=== PATIENT | male | born 1945 | race Caucasian/White ===

== ENCOUNTER 2019-12-24 20:04 | Emergency (ER) | payer MEDICARE, OTHER ==
--- NOTE | 2019-12-24 20:16 | ER Document Report ---
ED Medical Screen (RME) - General Chief Complaint: Laceration Stated Complaint: HEAD INJURY/BLOOD THINNERS Time Seen by Provider: 12/24/19 20:05 Mode of Arrival: Wheelchair Information source: Patient, Relative Notes: HPI; 74-year-old male with past medical history significant for brain tumor presents emergency room with his after he lost his balance falling backward hitting his head on concrete and sustaining a laceration to the back of his head. Denies any loss of consciousness. Bleeding is controlled. Tetanus is up-to-date. Denies being on any blood thinners. PE: Alert and oriented x3. Slow to respond when asked questions, per that is his baseline. PERRLA, EOMI no trejo signs, no raccoon eyes. Lungs: Clear to auscultation without rales, rhonchi, wheezes. Heart: Regular rate rhythm without murmurs, rubs, gallops. Laceration noted to the back of the scalp bleeding is controlled. Tetanus is up-to-date. I have greeted and performed a rapid initial assessment of this patient. A comprehensive ED assessment and evaluation of the patient, analysis of test results and completion of the medical decision making process will be conducted by additional ED providers. I have specifically instructed the patient or family members with the patient to immediately return to any nursing staff should anything change in the patient's condition or with their chief complaint. TRAVEL OUTSIDE OF THE [place] IN LAST 30 DAYS: No
[2019-12-24 20:23] VITALS: BP 164/81
--- NOTE | 2019-12-24 21:12 | RADIOLOGY REPORT (SQ) ---
EXAM DESCRIPTION: CT HEAD WITHOUT IV CONTRAST COMPLETED DATE/TME: 12/24/2019 20:41 CLINICAL HISTORY: 74 years, Male, trauma COMPARISON: None. TECHNIQUE: Axial images without IV contrast. Sagittal coronal reconstruction. Images stored on PACS. All CT scanners at this facility use dose modulation, iterative reconstruction, and/or weight based dosing when appropriate to reduce radiation dose to as low as reasonably achievable (ALARA). FINDINGS: Jloe-[id number] ventriculomegaly. Cortical sulci are not prominent. Post craniotomy changes in the high left frontal and parietal bones. There is a peripheral hypodensity adjacent to the anterior portion of the craniotomy which measures approximately 3 cm in diameter. There are additional punctate calcifications in the same region not inside the hypodensity. No obvious acute intra-axial or extra-axial abnormalities related to trauma. Tiny soft tissue swelling possibly scalp hematoma in the midline posterior skull. Paranasal sinuses, mastoid air cells and bony calvarium are demonstrated without acute findings. IMPRESSION: 1. No obvious acute intracranial findings related to trauma. 2. Ventricles larger compared to cortical sulci. Rule out mild chronic hydrocephalus. 3. Postsurgical changes including craniotomy in the left vertex, moderate size area of hypodensity and additional clustered calcifications in the high left frontal parietal lobe.. Suggest correlation with surgical history.
--- NOTE | 2019-12-24 21:18 | RADIOLOGY REPORT (SQ) ---
EXAM DESCRIPTION: CT CERVICAL SPINE WITHOUT IV CONTRAST COMPLETED DATE/TME: 12/24/2019 20:41 CLINICAL HISTORY: 74 years, Male, trauma COMPARISON: None. TECHNIQUE: Axial images without IV contrast. Sagittal coronal reconstruction. Images stored on PACS. All CT scanners at this facility use dose modulation, iterative reconstruction, and/or weight based dosing when appropriate to reduce radiation dose to as low as reasonably achievable (ALARA). FINDINGS: Minimal anterior subluxation C4-5 probably degenerative. No obvious acute fracture dislocation. Multiple levels of degenerative changes. Ezyt-el-kzlmdzzf central stenosis at C4-5 and C6-7 and moderate at C5-C6. Large anterior osteophytes. Foraminal stenosis more obvious at C3-4 on the left C4-5 on the left C5-C6 and C6-7 bilaterally. IMPRESSION: 1. No obvious acute fracture dislocation. 2. Multilevel degenerative changes with central foraminal stenosis discussed above.
--- OUTSIDE RECORDS SUMMARY | 2019-12-26 17:51 | XMS REPORT ---
:1945 Author Organization [facility] Address [address] [place] [address] Care Team Providers Name Role Phone Lacy Bazzi Primary Care Physician Unavailable MD Marguerite Saba Attending Clinician Unavailable MD Marguerite Saba Attending Clinician Unavailable JAVI MONTE Attending Clinician Unavailable Lacy Bazzi MD Attending Clinician Unavailable Nubia DOWNS Attending Clinician Unavailable Ken Dowling Attending Clinician Unavailable Ken Dowling Attending Clinician Unavailable MD Reilly Burrell Attending Clinician Unavailable MD Reilly Burrell Attending Clinician Unavailable MD Demetrice Delgado Attending Clinician Unavailable MD Demetrice Delgado Attending Clinician Unavailable IGOR BEAULIEU Attending Clinician Unavailable JAVI MONTE Attending Clinician Unavailable SELVIN CEDENO Attending Clinician Unavailable Lizett Attending Clinician Unavailable MD Marcellus Lo Admitting Clinician Unavailable MD Reilly Burrell Admitting Clinician Unavailable Allergies, Adverse Reactions, Alerts This patient has no known allergies or adverse reactions. Medications Ordered Filled Start Stop Current Ordering Indication Dosage Frequency Signature Comments Components Medication Medication Date Date Medication? Clinician (SIG) Name Name Lisinopril 0 Yes Miguelito House Lisinopril 2.5 MG Oral 7-24 Rose Mary DOWNS 2.5 MG Tablet 10:31: Oral 07 Tablet TAKE 1 TABLET BY MOUTH ONCE DAILY FOR KIDNEY PROTECTION Quantity: 90 Refills: 1 Miguelito Bazzi MD Start : 0Active Rollator 2019-0 Yes Miguelito House Rollator Ultra-Light 7-13 Rose Mary DOWNS Ultra-Lig h 00:00: t ROLLING 00 WALKER- ABNORAL GAIT Quantity: 1 Refills: 0 Miguelito Bazzi MD Start : 0Active Atorvastati 2019-0 No Miguelito House Atorvastat n Calcium 6-22 Rose Mary DOWNS in Calcium 20 MG Oral 09:52: 20 MG Oral Tablet 45 Tablet take 1 tablet by mouth once daily at bedtime Quantity: 30 Refills: 6 Miguelito Bazzi MD Start : 0Active metFORMIN No Miguelito B metFORMIN HCl - 500 -19 Rose Mary DOWNS HCl - 500 MG Oral 13:24: MG Oral Tablet 03 Tablet TAKE 1 TABLET BY MOUTH TWICE DAILY WITH MEALS Quantity: 180 Refills: 3 Miguelito Bazzi MD Start : 0Active levETIRAcet No 1500mg 1,500 mg = am 750 mg 3-05 2 tab(s), oral 14:36: PO, Daily, tablet, 00 # 60 extended tab(s), 0 release Refill(s) levETIRAcet 2020- No [id number] 1500mg Q.5D Take 2 am (KEPPRA 2-20 -19 tablets XR) 750 mg 00:00: 23:59 (1,500 mg ER tablet 00 :00 total) by mouth 2 (two) times daily ondansetron No See 8 mg oral 04-03 Instructio tablet* 13:04: ns, 1 00 tab(s) PO 30 minutes before Temodar dose, # 5 tab(s), 0 Refill(s), Pharmacy: [facility], 193, cm, 04/03/19 9:08:00 EST, Height, 130.7, kg, 04/03/19 9:08:00 EST, Weight KEPPRA XR 2019- No [id number] 1500mg Q12H Take 3 500 mg XR 2-05 -20 tablets tablet 00:00: 00:00 (1,500 mg 00 :00 total) by mouth every 12 (twelve) hours Lisinopril No Miguelito B Lisinopril 2.5 MG Oral 1-14 Rose Mary DOWNS 2.5 MG Tablet 13:24: Oral 49 Tablet TAKE 1 TABLET BY MOUTH ONCE DAILY FOR KIDNEY PROTECTION Quantity: 90 Refills: 1 Miguelito Bazzi MD Start : 0Active KEPPRA XR 2020- No [id number] TAKE 3 500 mg XR 1-03 02-05 TABLETS BY tablet 00:00: 00:00 MOUTH 00 :00 TWICE DAILY Tamsulosin 2018-02 No Miguelito B Tamsulosin HCl - 0.4 2-12 Rose Mary DOWNS HCl - 0.4 MG Oral 08:15: MG Oral Capsule 31 Capsule take 1 capsule by mouth once daily at bedtime Quantity: 90 Refills: 3 Miguelito Bazzi MD Start : 9Active Temodar 100 2018-02 Yes Blair Temodar MG Oral 2-04 Ashanti 100 MG Capsule 00:00: M.D. Oral 00 Capsule TAKE 2 CAPSULE Daily x 42 days (held as of 02/07/19) Refills: 0 Ashanti Rivas Blair Start : 16-Jan-2019 Active MVI 2018-02 Yes 11 1 tab, PO, 1-20 Daily, 0 13:54: Refill(s) 00 Flomax 0.4 2018-02 Yes .4mg 0.4 mg = 1 mg oral 1-20 cap(s), capsule 13:54: PO, Daily, 00 0 Refill(s) metFORMIN 2018-02 Yes 500mg 500 mg = 1 500 mg oral 1-20 tab(s), tablet 13:53: PO, BID, 0 00 Refill(s) Keppra XR 2018-02 Yes 1500mg 1,500 mg, 1-20 PO, BID, 0 13:52: Refill(s) 00 Shingrix 50 Yes Miguelito House Shingrix MCG/0.5ML 05-15 Rose Mary DOWNS 50 Intramuscul 00:00: MCG/0.5ML ar 00 Intramuscu Suspension lar Reconstitut Suspension ed Reconstitu césar INJECT DOSE DIRECTED. Quantity: 1 Refills: 0 Miguelito Bazzi MD Start : 15-May-2018 Active Shingrix 50 Yes Miguelito House Shingrix MCG 05-15 Rose Mary DOWNS 50 MCG Intramuscul 00:00: Intramuscu ar 00 lar Suspension Suspension Reconstitut Reconstitu ed césar INJECT SECOND DOSE 2-6 MONTHS AFTER FIRST DOSE. Quantity: 1 Refills: 0 Miguelito Bazzi MD Start : 15-May-2018 Active Nitroglycer Yes Miguelito House Nitroglyce in 0.4 MG 11-08 Rose Mary DOWNS rin 0.4 MG Sublingual 00:00: Sublingual Tablet 00 Tablet Sublingual Sublingual NITRO - DISSOLVE ONE TABLET UNDER THE TONGUE EVERY 5 MINUTES NEEDED FOR CHEST PAIN. DO NOT EXCEED A TOTAL OF 3 DOSES IN 15 MINUTES Quantity: 25 Refills: 3 Miguelito Bazzi MD Start : 8Active SF 5000 2016-02 Yes SF 5000 Plus 1.1 % 1-10 Plus 1.1 % Dental 00:00: Dental Cream 00 Cream Quantity: 51 Refills: 0 Start : 7Active levETIRAcet 2016-02 No Luis Alfredo levETIRAce am ER 750 0-17 Nubia arevalo ER 750 MG Oral 00:00: MG Oral Tablet 00 Tablet Extended Extended Release 24 Release 24 Hour Hour TAKE 2 TABLETS PO BID. Quantity: 360 Refills: 1 Luis Alfredo Delacruz MD Start : 7Active levETIRAcet 2016-02 Yes Luis Alfredo levETIRAce am ER 750 0-17 Nubia arevalo ER 750 MG Oral 00:00: MG Oral Tablet 00 Tablet Extended Extended Release 24 Release 24 Hour Hour TAKE 2 TABLETS PO BID. Quantity: 360 Refills: 1 Luis Alfredo Delacruz MD Start : 7Active Metanx Yes 1 QD Metanx 3-90.314-2- 3-02 3-90.314-2 35 MG Oral 00:00: -35 MG Capsule 00 Oral Capsule TAKE 1 CAPSULE DAILY Refills: 0 Start : 14-Apr-2016 Active PreserVisio Yes PreserVisi n AREDS 3-02 on AREDS Oral 00:00: Oral Capsule 00 Capsule TAKE DIRECTED. Refills: 0 Start : 14-Apr-2016 Active albuterol 2015-02 No 11 = 1 CFC free 90 2-31 puff(s), mcg/inh 16:47: Inhalation inhalation 00 , QID, for aerosol wheezing, use with spacer chamber, # 18 gm, 0 Refill(s) lisinopril 2015-02 Yes 2.5mg 2.5 mg = 1 2.5 mg oral 2-31 tab(s), tablet 14:42: PO, Daily 00 Lyrica 75 2015-02 Yes 75mg 75 mg = 1 mg oral 2-31 cap(s), capsule 14:41: PO, BID 00 atorvastati 2015-02 Yes 20mg 20 mg = 1 n 20 mg 2-31 tab(s), oral tablet 14:41: PO, Daily 00 Atorvastati Yes Miguelito B Atorvastat n Calcium 6-05 Rose Mary DOWNS in Calcium 20 MG Oral 00:00: 20 MG Oral Tablet 00 Tablet take 1 tablet by mouth once daily at bedtime Quantity: 90 Refills: 3 Rose Mary DOWNS, Miguelito House Start : 18-Jul-2014 Active Pregabalin No Luis Alfredo Pregabalin 75 MG Oral 3- Nubia DOWNS 75 MG Oral Capsule 00:00: Capsule 00 TAKE ONE CAPSULE BY MOUTH TWICE DAILY Quantity: 180 Refills: 1 Luis Alfredo Delacruz MD Start : 5Active Pregabalin Yes Luis Alfredo Pregabalin 75 MG Oral 3- Nubia DOWNS 75 MG Oral Capsule 00:00: Capsule 00 TAKE ONE CAPSULE BY MOUTH TWICE DAILY Quantity: 180 Refills: 1 Luis Alfredo Delacruz MD Start : 5Active Vimpat 150 Yes 150mg 150 mg = 1 mg oral 1-30 tab(s), tablet 11:34: PO, BID 00 Vimpat 200 No LuisA lfredo 1 Q0.5D Vimpat 200 MG Oral - Nubia DOWNS MG Oral Tablet 00:00: Tablet 00 TAKE 1 TABLET TWICE DAILY Quantity: 180 Refills: 1 Luis Alfredo Delacruz MD Start : 4Active Vimpat 200 Yes Luis Alfredo 1 Q0.5D Vimpat 200 MG Oral - Nubia DOWNS MG Oral Tablet 00:00: Tablet 00 TAKE 1 TABLET TWICE DAILY Quantity: 180 Refills: 1 Luis Alfredo Delacruz MD Start : 4Active levETIRAcet 2012-02- No TAKE TWO am (KEPPRA 03-09 04-18 TABLETS BY XR) 750 mg 00:00: 00:00 MOUTH AT ER tablet 00 :00 BEDTIME EVERY DAY LORazepam 2012-02- No [id number] One tablet (ATIVAN) 02-26 by mouth MG tablet 00:00: 00:00 once daily 00 :00 as needed for anxiety. nystatin 2012-02- No [id number] 5mL Q.25D Swish and (MYCOSTATIN 02-26 swallow 5 ) 100,000 00:00: 23:59 mLs 4 unit/mL 00 :00 (four) suspension times daily. Ondansetron Yes Blair Ondansetro HCl - 8 MG 9-23 Ashanti vandana HCl - 8 Oral Tablet 00:00: M.D. MG Oral 00 Tablet Take one tablet 30 minutes before Temodar dose Quantity: 42 Refills: 0 Blair Burrell M.D. Start : 3Active lacosamide 2013- No 150mg Q.5D Take 150 (VIMPAT) 50 10-25 01-13 mg by mg tablet 00:00: 00:00 mouth 2 00 :00 (two) times daily. levETIRAcet 2012- No [id number] TAKE TW O am (KEPPRA 10-10 105 TABLETS BY XR) 750 mg 00:00: 00:00 MOUTH ONCE ER tablet 00 :00 EVERY DAY AT BEDTIME. Multi-Vitam Yes Miguelito B 1 QD Multi-Belinda in Oral 08-28 Rose Mary DOWNS min Oral Tablet 00:00: Tablet 00 TAKE 1 TABLET DAILY. Quantity: 1 Refills: 0 Miguelito Bazzi MD Start : 3Active Tamsulosin Yes Miguelito B Tamsulosin HCl - 0.4 - Rose Mary DOWNS HCl - 0.4 MG Oral 00:00: MG Oral Capsule 00 Capsule take 1 capsule by mouth once daily at bedtime Quantity: 90 Refills: 3 Miguelito Bazzi MD Start : 3Active temozolomid 2013- No [id number] Take 1 cap e (TEMODAR) 08-23-10 (100 mg) 100 MG 00:00: 00:00 nightly by capsule 00 :00 mouth days - along with 1 20mg tab for a total of 120mg daily. temozolomid 2013- No [id number] Take 1 cap e (TEMODAR) 08-23 07-10 (20 mg) 20 MG 00:00: 00:00 nightly by capsule 00 :00 mouth days - along with 1 tab of 100mg for a total of 120mg daily. ondansetron 2013- No [id number] Take 1 tab (ZOFRAN) 8 08-23 (8mg) by MG tablet 00:00: 00:00 mouth 1 00 :00 hour before daily temozolomi de. Take every 8 hours as needed for nausea. metFORMIN Yes Miguelito B metFORMIN HCl - 500 2-21 Rose Mary DOWNS HCl - 500 MG Oral 00:00: MG Oral Tablet 00 Tablet TAKE 1 TABLET BY MOUTH TWICE DAILY WITH MEALS Quantity: 180 Refills: 3 Rose Mary DOWNS, Miguelito B Start : 3Active metFORMIN Yes 500mg Take 500 (GLUCOPHAGE mg by ) 500 MG mouth 2 tablet (two) times daily with meals. multivitami No 1{tbl} QD Take 1 n tablet by (MULTIVITAM mouth once IN) tablet daily. UNABLE TO Yes Preservisi FIND on , 100mg once a day tamsulosin Yes .4mg QD Take 0.4 (FLOMAX) mg by 0.4 mg mouth capsule nightly. lisinopril Yes 2.5mg QD Take 2.5 (PRINIVIL,Z mg by ESTRIL) 2.5 mouth once MG tablet daily. atorvastati Yes 20mg QD Take 20 mg n (LIPITOR) by mouth 20 MG every tablet evening pregabalin Yes 75mg Q.5D Take 75 mg (LYRICA) 75 by mouth 2 MG capsule (two) times daily. lacosamide Yes 200mg Q.5D Take 200 (VIMPAT) mg by 200 mg mouth 2 tablet (two) times daily docusate Yes 100mg Q.5D Take 100 (COLACE) mg by 100 MG mouth 2 capsule (two) times daily as needed for Constipati on sennosides Yes 1{tbl} Q1H Take 1 (SENOKOT) tablet by 8.6 mg mouth as tablet needed multivitami Yes 1{tbl} QD Take 1 n tablet by (MULTIVITAM mouth once IN) tablet daily. amoxicillin No amoxicilli 875 n 875 mg-potassiu mg-potassi m um clavulanate clavulanat 125 mg e 125 mg tablet tablet atorvastati No atorvastat n 20 mg in 20 mg tablet tablet fluticasone No fluticason propionate e 50 propionate mcg/actuati 50 on nasal mcg/actuat spray,suspe ion nasal nsion spray,susp ension Gleostine No Gleostine 100 mg 100 mg capsule capsule levetiracet No levetirace am ER 750 arevalo ER 750 mg mg tablet,exte tablet,ext nded ended release 24 release 24 hr hr lisinopril No lisinopril 2.5 mg 2.5 mg tablet tablet Lyrica 75 No Lyrica 75 mg capsule mg capsule metformin No metformin 500 mg 500 mg tablet tablet nitroglycer No nitroglyce in 0.4 mg rin 0.4 mg sublingual sublingual tablet tablet ondansetron No ondansetro HCl 8 mg n HCl 8 mg tablet tablet prochlorper No prochlorpe azine razine maleate 10 maleate 10 mg tablet mg tablet promethazin No promethazi e 6.25 ne 6.25 mg-codeine mg-codeine 10 mg/5 mL 10 mg/5 mL syrup syrup SF 5000 No SF 5000 Plus 1.1 % Plus 1.1 % dental dental cream cream tamsulosin No tamsulosin 0.4 mg 0.4 mg capsule capsule Vimpat 200 No Vimpat 200 mg tablet mg tablet acetaminoph No 650mg Q6H Take 650 en 08-01 mg by (TYLENOL) 00:00 mouth 325 MG :00 every 6 tablet (six) hours as needed. Reported on 03/01/2016 docusate 2013- No 100mg Q1H Take 100 (COLACE) 09-25 mg by 100 MG 00:00 mouth as capsule :00 needed. sennosides- 2013- No 1{tbl} Q1H Take 1 docusate 09-25 tablet by (SENOKOT-S) 00:00 mouth as 8.6-50 mg :00 needed. tablet atorvastati 2013- No 40mg QD Take 40 mg n (LIPITOR) 07-10 by mouth 40 MG 00:00 daily. tablet :00 calcium-vit 2013- No 1{tbl} QD Take 1 crowder D 07-10 tablet by 500-125 00:00 mouth mg-unit :00 daily. tablet lisinopril 2013- No 2.5mg QD Take 2.5 (PRINIVIL,Z 03-06 mg by ESTRIL) 2.5 00:00 mouth MG tablet :00 daily. mirabegron 2013- No 1{tbl} Q1H Take 1 50 mg Tb24 03-06 tablet by 00:00 mouth as :00 needed. phenytoin 2013- No 200mg QD Take 200 (DILANTIN) 01-09 mg by 100 MG ER 00:00 mouth capsule :00 nightly. . Takes generic Problems Condition Condition Condition Status Onset Resolution Last Treatin g Comments Name Details Category Date Date Treatment Clinician Date Personal Personal [id number] Active 2019-06-19 history of history of 06-18 14:08:51 malignant malignant 00:00: melanoma of melanoma of 00 skin skin Malignant Malignant Problem Active neoplasm of Neoplasm of 06-20 brain Brain 00:00: 00 Diabetes Diabetes [id number] Active 2012-10-26 mellitus mellitus 08-22 17:02:40 00:00: 00 Hyperlipide Hyperlipide [id number] Active 2012-10-26 nick nick 08-22 17:02:42 00:00: 00 Epilepsy, Epilepsy, [id number] Active 2012-10-26 Overview: localizatio localizatio 08-22 17:03:06 Due to n-related n-related 00:00: brai n 00 tumor. 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 Disease of Respiratory Problem suspend P roblem respiratory disorder(Co ed added system nfirmed)8 automa tic (disorder) ally by system based on initiati o n of the Respirat o ry Disorder Plan of Care. Alteration Alteration Problem active Pr oblem in comfort: in comfort: added pain pain(Confir auto matic (finding) med)1 ally b y system based on initiati o n of the Alterati o n in comfort: Pain amelia n of Care. At risk of At risk for Problem active P roblem infection infection(C ad ded (finding) onfirmed)2 aut omatic ally by system based on initiati o n of the At Risk for Infectio n Plan of Care. Impaired Impaired Problem active Proble m skin skin added integrity integrity(C au tomatic (finding) onfirmed)7 all y by system based on initiati o n of the Impaired Skin Integrit y Plan of Care. At risk for Fall Problem active Prob leonel falls risk(Confir adde d (finding) med)5 automa tic ally by system based on initiati o n of the Fall Ris k Plan of Care. Decreased Decreased Problem suspend Prob leonel cardiac cardiac ed added output output(Conf auto matic (finding) irmed)3 ally b y system based on initiati o n of the Decrease d Cardiac Output Plan of Care. 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 colon colon Abnormal Abnormal Problem Active weight loss weight loss Cancer, Cancer, Problem Active colon colon Nocturia Nocturia Problem Active Testicular Testicular Problem Active swelling swelling Epididymiti Epididymiti Problem Active s s Hypogonadis Hypogonadis Problem Active m male m male Toe pain, Toe pain, Problem Active bilateral bilateral Edema Edema Problem Active Dystrophic Dystrophic Problem Active nail nail Numbness of Numbness of Problem Active toes toes Subungual Subungual Problem Active hematoma of hematoma of toenail of toenail of right foot right foot Onycholysis Onycholysis Problem Active of toenail of toenail Abscess of Abscess of Problem Active axilla, axilla, right right Axillary Axillary Problem Active mass, right mass, right Dizziness Dizziness Problem Active Male Male Problem Active erectile erectile 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 Peripheral Peripheral Problem Active neuropathy neuropathy Fever Fever Problem Active Cough Cough Problem Active Excessive Excessive Problem Active daytime daytime sleepiness sleepiness Dyspnea on Dyspnea on Problem Active exertion exertion Sleep apnea Sleep apnea Problem Active Venous Venous Problem Active insufficien insufficien cy cy Sinus Sinus Problem Active bradycardia bradycardia Lightheaded Lightheaded Problem Active ness ness Right-sided Right-sided Problem Active low back low back pain pain without without sciatica sciatica Recurrent Recurrent Problem Active falls falls Atypical Atypical Problem Active chest pain chest pain Pain in Pain in Problem Active lateral lateral right upper right upper extremity extremity Encounter Encounter Problem Active for for prostate prostate cancer cancer screening screening Adenocarcin Adenocarcin Problem Active sus[place] of [place] of transverse transverse colon colon Right elbow Right elbow Problem Active pain pain Incomplete Incomplete Problem Active emptying of emptying of bladder bladder Anemia Anemia Problem Active Nausea Nausea Problem Active Thrombocyto Thrombocyto Problem Active penia penia Fatigue Fatigue Problem Active Benign Benign Problem Active enlargement enlargement of prostate of prostate Seizure Seizure Problem Active Hyperlipopr Hyperlipopr Problem Active oteinemia oteinemia Malignant Malignant Problem Active melanoma of melanoma of skin of skin of face face Seizure Seizure Problem Active disorder disorder Poor Poor Problem Active balance balance Ambulatory Ambulatory Problem Active dysfunction dysfunction Status post Status post [id number] Resolve 2012-2012-10-26 appendectom appendectom d 7-10 00:00:00 y y 00:00: 00 Procedures Procedure Date / Time Performed Performing Clinician Geetha sharma [id number] 00:00:00 Piter Monte MRI - Brain w/ and w/o contrast 2019-08-13 00:00:00 REQUEST TO STORE OUTSIDE IMAGES 2019-07-03 14:31:06 Ismael Monteh [id number] 6420-05-19 00:00:00 Piter Monte REQUEST TO STORE OUTSIDE IMAGES 2019-05-14 12:50:48 Ismael Monte [id number] 4036-03-10 00:00:00 Piter Monte [id number] 00:00:00 Piter Monte Stereotactic biopsy of brain 2018-12-20 00:00:00 NEUROMUSCULAR REEDUCATION 2018-10-24 11:00:00 THERAPEUTIC EXERCISES 2018-10-24 11:00:00 THERAPEUTIC EXERCISES 2018-10-22 11:00:00 THERAPEUTIC ACTIVITIES 2018-10-22 11:00:00 THERAPEUTIC EXERCISES 2018-10-12 10:00:00 NEUROMUSCULAR REEDUCATION 2018-10-12 10:00:00 THERAPEUTIC EXERCISES 2018-09-27 11:00:00 NEUROMUSCULAR REEDUCATION 2018-09-27 11:00:00 THERAPEUTIC EXERCISES 2018-09-20 10:00:00 NEUROMUSCULAR REEDUCATION 2018-09-20 10:00:00 THERAPEUTIC EXERCISES 2018-09-14 11:00:00 PT Evaluation, Low Complexity 2018-09-14 11:00:00 History of Laparoscopy Partial 2014-03-19 00:00:00 Colectomy Craniotomy 2001-09-13 00:00:00 Appendectomy; Craniotomy Hemorrhoidectomy Partial resection of colon Vasectomy History of Brain Surgery History of Small Bowel Resection Results Test Description Test Time Test Comments Text Results Atomic Results Result Comments MRI head reference only 2019-11-19 02:40:08 This order has been auto-finalized. Please see additional clin ical documentation for result rep ort. UA Spec Grav,UA Color,UA Appear,UA Glucose,UA Bili,UA 2019-10-30 15:15:00 Ketones,UA Blood,UA pH,UA Protein,UA Urobilino Test Item Value Reference Range Comments UA Spec Grav (test code = UA Spec Grav) >1.050 UA Color (test code = UA Color) LT YELLOW UA Appear (test code = UA Appear) CLEAR UA Glucose (test code = UA Glucose) NEGATIVE UA Bili (test code = UA Bili) NEGATIVE UA Ketones (test code = UA Ketones) NEGATIVE UA Blood (test code = UA Blood) NEGATIVE UA pH (test code = UA pH) 5.5 5.0-9.0 UA Protein (test code = UA Protein) 10 mg/dL 0-30 UA Urobilinogen (test code = UA Urobilinogen) NEGATIVE 0. 2-1.0 UA Nitrite (test code = UA Nitrite) NEGATIVE UA Leuk Est (test code = UA Leuk Est) NEGATIVE WBC,Neutro Percent,Lymph Percent,[place] Percent,Eos Percent,Basophil Percent,Neut Absolute,Lymphs [id number] 13:54:00 Test Item Value Reference Range Comments WBC (test code = WBC) 6.1 1 4.8-10.8 Neutro Percent (test code = Neutro Percent) 61.7 % 34.6 -71.4 Lymph Percent (test code = Lymph Percent) 16.5 % 19.6-5 2.7 [place] Percent (test code = [place] Percent) 14.5 % 2.4-11.8 Eos Percent (test code = Eos Percent) 6.4 % 0-7.8 Basophil Percent (test code = Basophil Percent) 0.7 % 0-1.8 Neut Absolute (test code = Neut Absolute) 3.7 1 1.8-7. 3 Lymphs Absolute (test code = Lymphs Absolute) 1.0 1 1. 5-4.0 [place] Absolute (test code = [place] Absolute) 0.9 1 0.2-1. 0 Eos Absolute (EOSA) (test code = Eos Absolute 0.4 1 0- 0.7 (EOSA)) Baso Absolute (BASOA) (test code = Baso Absolute 0.0 1 0.0-0.2 (BASOA)) RBC (test code = RBC) 4.09 1 4.70-6.10 Hgb (test code = Hgb) 13.4 1 14.0-18.0 Hct (test code = Hct) 41.5 % 40.0-54.0 MCV (MCV) (test code = MCV (MCV)) 101.5 fL 80-94 MCH (HCH) (test code = MCH (HCH)) 32.8 pg 27-34 MCHC (MCHC) (test code = MCHC (MCHC)) 32.3 % 31.5-36.0 RDW (RDW) (test code = RDW (RDW)) 14.8 % 11.5-14.5 Platelet (test code = Platelet) 127 1 130-400 MPV (test code = MPV) 9.7 fL 7.4-10.4 Glucose Lvl,BUN,Creatinine,Bili Total,Alk Phos,AST,ALT,Total Protein,Albumin Lvl,Globulin,Albumin/[id number] 13:54:00 Test Item Value Reference Range Comments Glucose Lvl (test code = Glucose Lvl) 95 mg/dL 74-106 BUN (test code = BUN) 16 mg/dL 9-23 Creatinine (test code = Creatinine) 0.97 mg/dL 0.70-1.30 Bili Total (test code = Bili Total) 0.4 mg/dL 0.2-1.2 Alk Phos (test code = Alk Phos) 62 1 46-116 AST (test code = AST) 24 1 15-34 ALT (test code = ALT) 23 1 10-49 Total Protein (test code = Total Protein) 6.7 1 5.7-8. 2 Albumin Lvl (test code = Albumin Lvl) 3.8 1 3.4-5.0 Globulin (test code = Globulin) 2.9 1 1.5-4.5 Albumin/Globulin Ratio (test code = 1.3 1.1-1.8 Albumin/Globulin Ratio) Calcium Lvl (test code = Calcium Lvl) 9.5 mg/dL 8.7-10.4 Sodium Lvl (test code = Sodium Lvl) 141 mmol/L 136-145 Potassium Lvl (test code = Potassium Lvl) 4.1 mmol/L 3.4-5. 1 Chloride (test code = Chloride) 107 mmol/L 98-107 CO2 (test code = CO2) 27.0 mmol/L 20-31 Anion Gap (test code = Anion Gap) 7 4-18 Calc Osmol (test code = Calc Osmol) 282 1 BUN/CR Ratio (test code = BUN/CR Ratio) 16 GFR Non (test code = GFR Non >60.00 ) GFR (test code = GFR >60.00 Chinese) [id number] 13:54:00 Test Item Value Reference Range Comments PTT (test code = PTT) 23.4 s 22.5-28.6 PT,[id number] 13:54:00 Test Item Value Reference Range Comments PT (test code = PT) 9.8 s 9.7-11.3 INR (test code = INR) 0.9 0.9-1.1 [id number] 13:54:00 Test Item Value Reference Range Comments Troponin-I (test code = Troponin-I) <0.01 0.00-0.06 Whole Blood [id number] 13:49:00 Test Item Value Reference Range Comments Whole Blood Glucose (test code = Whole Blood 94 mg/dL 74- 106 Glucose) Blood [id number] 11:51:00 Test Item Value Reference Range Comments Blood Sugar (test code = Blood Sugar) 166 mg/dL 70-110 patient is not [id number] 11:51:00 Test Item Value Reference Range Comments Urine Color (test code = Urine Color) LT. YELLOW Yellow Urine Clarity (test code = Urine Clarity) CLEAR Clear Urine Glucose (test code = Urine Glucose) NEGATIVE Negati ve Urine Ketones (test code = Urine Ketones) NEGATIVE Negati ve Urine Bilirubin (test code = Urine Bilirubin) NEGATIVE Ne gative Urine Specific [place] (test code = Urine 1.010 1.010- 1.030 Specific [place]) Urine Blood (test code = Urine Blood) NEGATIVE Negative Urine pH (test code = Urine pH) 6.0 5.0-8.0 Urine Protein (test code = Urine Protein) NEGATIVE Negati ve Urine Urobilinogen (test code = Urine 0.2 Eu/dl 0.2 Urobilinogen) Urine Nitrites (test code = Urine Nitrites) NEGATIVE Nega tive Urine Leukocytes (test code = Urine Leukocytes) NEGATIVE Negative Lipid [id number] 11:51:00 Test Item Value Reference Range Comments Chol/HDL Ratio (test code = 2089-1) 4.6 {ratio} 0.0-6.0 High Density Lipoprotein Cholesterol (test code 42 mg/dL 40-110 = High Density Lipoprotein Cholesterol) Low Density Lipoprotein, calculated (test code = 106 mg/dL 1-130 Low Density Lipoprotein, calculated) Thyroid Stimulating [id number] 11:51:00 Test Item Value Reference Range Comments Thyroid Stimulating Hormone (test code = 2.69 {mIU/mL} 0.46-4. 68 Thyroid Stimulating Hormone) [id number] 11:51:00 Test Item Value Reference Range Comments PSA, total (test code = 0.934 ng/mL 0.000-4.000 PSA perf ormed on Vitros 5600 by PSA, total) Immunometric met hod. Microalbumin [id number] 11:51:00 Test Item Value Reference Range Comments Microalbumin (test code = 1755-8) <0.6 <1.6 Less than linearity Hemoglobin [id number] 11:51:00 Test Item Value Reference Range Comments Hemoglobin A1C; Above High Threshold (test code = 6.8 % 4.3-6.2 4548-4) REQUEST TO STORE OUTSIDE [id number] 14:31:34Please refer to the appropriate PACS to view images.MRI head reference [id number] 14:29:52This order has been auto-finalized. Please see additional clinical documentation for result report.MRI head reference [id number] 14:29:52This order has been auto-finalized. Please see additional clinical documentation for result report.REQUEST TO STORE OUTSIDE [id number] 12:52:10Please refer to the appropriate PACS to view images.MRI head reference [id number] 12:51:21This order has been auto-finalized. Please see additional clinical documentation for result report.MRI head reference [id number] 12:51:21This order has been auto-finalized. Please see additional clinical documentation for result report. Assessments Condition Name Status Diagnosis Date Treating Clinici an Malignant neoplasm of brain, Active 0 unspecified Malignant neoplasm of frontal lobe Active 0 Malignant neoplasm of brain, Active 0 unspecified Acute embolism and thrombosis of deep Active 0 veins of lower extremity Thrombocytopenia, unspecified Active 0 Malignant neoplasm of brain, Active 0 unspecified Ataxia, unspecified Active Malignant neoplasm of brain, Active unspecified Muscle weakness (generalized) Active Other abnormalities of gait and Active mobility Muscle weakness (generalized) Active Other abnormalities of gait and Active mobility Ataxia, unspecified Active Malignant neoplasm of brain, Active unspecified Muscle weakness (generalized) Active Other abnormalities of gait and Active mobility Ataxia, unspecified Active Malignant neoplasm of brain, Active unspecified Muscle weakness (generalized) Active Other abnormalities of gait and Active mobility Ataxia, unspecified Active Malignant neoplasm of brain, Active unspecified Muscle weakness (generalized) Active Other abnormalities of gait and Active mobility Ataxia, unspecified Active Malignant neoplasm of brain, Active unspecified Muscle weakness (generalized) Active Other abnormalities of gait and Active mobility Ataxia, unspecified Active Malignant neoplasm of brain, Active unspecified Malignant neoplasm of brain Active 2018-06-20 09:37:36 Atypical chest pain Active Diabetes mellitus Active 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 Hyperlipoproteinemia Active Pain in lateral right upper extremity Active Fatigue Active Diabetes mellitus Active Oligodendroglioma Active Diabetes mellitus Active NILTON (obstructive sleep apnea) Active 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 Seizure disorder Active Poor balance Active Diabetes mellitus Active NILTON (obstructive sleep apnea) Active 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 Hyperlipoproteinemia Active Seizure disorder Active Poor balance Active Diabetes mellitus Active Oligodendroglioma Active Hyperlipoproteinemia Active Seizure disorder Active Poor balance Active Oligodendroglioma Active Anemia Active Thrombocytopenia Active Oligodendroglioma Active Oligodendroglioma Active Diabetes mellitus Active NILTON (obstructive sleep apnea) Active 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 Hyperlipoproteinemia Active Poor balance Active Encounter for antineoplastic Active chemotherapy 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 Thrombocytopenia Active Oligodendroglioma Active Diabetes mellitus Active Incomplete emptying of bladder Active Seizure disorder Active Poor balance Active Oligodendroglioma Active Anemia Active Thrombocytopenia Active Oligodendroglioma Active Anemia Active Thrombocytopenia Active Constipation Active Oligodendroglioma Active Oligodendroglioma Active Thrombocytopenia Active Nausea Active Thrombocytopenia Active Oligodendroglioma Active Fatigue Active Thrombocytopenia Active Oligodendroglioma Active Diabetes mellitus Active NILTON (obstructive sleep apnea) Active Oligodendroglioma Active Hyperlipoproteinemia Active Seizure disorder Active Poor balance Active Oligodendroglioma Active Diabetes mellitus Active Malignant melanoma of skin of face Active NILTON (obstructive sleep apnea) Active Oligodendroglioma Active Hyperlipoproteinemia Active Seizure disorder Active Poor balance Active Diabetes mellitus Active Malignant melanoma of skin of face Active Ambulatory dysfunction Active NILTON (obstructive sleep apnea) Active Oligodendroglioma Active Hyperlipoproteinemia Active Seizure disorder Active Poor balance Active Oligodendroglioma Active Malignant melanoma of skin of face Active Ambulatory dysfunction Active Diabetes mellitus Active NILTON (obstructive sleep apnea) Active Hyperlipoproteinemia Active Seizure disorder Active Poor balance Active Flu vaccine need Active Diabetes mellitus Active NILTON (obstructive sleep apnea) Active 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 Hyperlipoproteinemia Active Atypical chest pain Active Seizure disorder Active Recurrent falls Active Poor balance Active Acute bronchitis Active Hyperlipoproteinemia Active Seizure disorder Active 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 with neuropathy 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, IDH Unknown mutant and 1p/19q-codeleted (CMS-HCC) Seizures (CMS-HCC) Unknown 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) Encounters Start End Encounter Admission Attending Care Care Encounter Date/Time Date/Time Type Type Clinicians Facility Department ID 2019-12-25 2019-12-25 E 1 Alvin Saba [facility] [id number] 06:31:56 10:28:00 Alvin Saba 2019-11-18 2019-11-18 [facility] [id number] 12:56:53 23:59:00 PITER 2019-11-13 2019-11-13 Appointment JOCY Bazzi [facility] [id number] 10:15:00 13:30:17 ; Miguelito Bazzi MD 2019-11-13 2019-11-13 Appointment JOCY Delacruz [facility] [id number] 08:30:00 08:30:00 ; Luis Alfredo Delacruz MD 2019-10-30 2019-10-30 Tang Blanc [facility] [id number] 13:46:14 18:52:00 Tang Dowling 2019-10-30 2019-10-30 Appointment [facility] [id number] 15:00:00 15:00:00 ; Kalia Moseley D.O. 2019-10-30 2019-10-30 Ken Burrell W [facility] [id number] 11:32:40 11:32:40 Quique Burrell 2019-06-25 2019-10-17 Ken Burrell W [facility] [id number] 10:21:19 08:09:00 Quique Burrell 2019-09-26 2019-09-26 Marguerite Burrell [facility] [id number] 07:52:28 23:59:59 Quqiue Burrell 2019-09-26 2019-09-26 Outpatient [facility] [id number] 00:00:00 00:00:00 PITER 2019-09-25 2019-09-25 Appointment Nubia [facility] [id number] 10:00:00 10:00:00 ; Luis Alfredo Delacruz MD 2019-09-25 2019-09-25 Appointment [facility] [id number] 09:00:00 09:00:00 ; Tamera Funez MD 2019-08-26 2019-08-26 Appointment Rose Mary [facility] [id number] 11:15:00 11:15:00 ; Miguelito Bazzi MD 2019-08-02 2019-08-02 Appointment Nubia [facility] [id number] 10:00:00 10:00:00 ; Luis Alfredo Delacruz MD 2019-07-10 2019-07-10 Susanne Lundberg [facility] [id number] 07:28:38 07:28:38 Susanne Delgado 2019-07-04 2019-07-04 [facility] [id number] 16:11:49 16:11:49 LEONARDA 2019-07-03 2019-07-03 [facility] [id number] 10:00:45 23:59:00 PITER 2019-07-02 2019-07-02 [facility] [id number] 00:00:00 23:59:00 PITER 2019-01-02 2019-07-01 Susanne Lundberg [facility] [id number] 12:57:20 23:59:59 Susanne Delgado 2019-07-01 2019-07-01 Out[facility] [id number] 00:00:00 00:00:00 2019-06-28 2019-06-28 Out[facility] [id number] 00:00:00 00:00:00 2019-06-28 2019-06-28 Outpatient [facility] [id number] 00:00:00 00:00:00 2019-06-28 2019-06-28 Outpatient [facility] [id number] 00:00:00 00:00:00 2019-06-26 2019-06-26 [facility] [id number] 11:20:23 11:20:23 FRANCES 2019-06-19 2019-06-19 [facility] [id number] 07:57:19 07:57:19 FRANCES 2019-05-14 2019-06-18 Quique Gomez [facility] [id number] 16:05:41 17:28:00 Quique Burrell 2019-03-04 2019-06-11 Quique Gomez [facility] [id number] 14:55:16 15:52:00 Quique Burrell 2019-06-07 2019-06-07 App[facility] [id number] 10:45:00 10:45:00 ; Luis Alfredo Delacruz MD 2019-06-04 2019-06-04 Quique Mederos [facility] [id number] 11:30:43 23:59:59 Quique Burrell 2019-05-15 2019-05-15 [facility] [id number] 08:09:40 08:09:40 LEONARDA 2019-05-14 2019-05-14 Outpatient [facility] [id number] 09:51:16 23:59:00 PITER 2019-04-23 2019-04-23 Outpatient [facility] [id number] 00:00:00 00:00:00 PITER 2019-03-20 2019-03-20 Outpatient [facility] [id number] 00:00:00 00:00:00 2019-03-05 2019-03-05 [facility] [id number] 09:30:00 09:30:00 ; Miguelito Bazzi MD 2019-02-22 2019-02-28 Quique Gomez [facility] [id number] 10:09:23 06:23:00 Quique Burrell 2019-02-27 2019-02-27 Appointment [facility] [id number] 11:30:00 11:30:00 ; [facility], ONC 2019-02-25 2019-02-25 [facility] [id number] 15:00:00 15:00:00 ; Miguelito Bazzi MD 2019-02-25 2019-02-25 Appointment [facility] [id number] 09:00:00 09:00:00 ; [facility], ONC 2019-02-21 2019-02-21 Appointment [facility] [id number] 14:40:00 14:40:00 ; Blair Burrell M.D. 2019-02-21 2019-02-21 Appointment [facility] [id number] 11:00:00 11:00:00 ; Blair Burrell M.D. 2019-02-14 2019-02-14 Appointment [facility] [id number] 14:15:00 14:15:00 ; [facility], ONC 2019-02-07 2019-02-07 Appointment [facility] [id number] 11:40:00 11:40:00 ; Blair Burrell M.D. 2019-01-31 2019-01-31 Appointment [facility] [id number] 14:20:00 14:20:00 ; [facility], ONC 2019-01-24 2019-01-24 [facility] [id number] 14:40:00 14:40:00 ; Blair Burrell M.D. 2019-01-02 2019-01-02 Appointment [facility] [id number] 11:20:00 11:20:00 ; Blair Burrell M.D. 2019-01-01 2019-01-01 Appointment Rose Mary [facility] [id number] 15:30:00 15:30:00 ; Miguelito Bazzi MD 2018-12-18 2018-12-18 Appointment [facility] [id number] 10:00:00 10:00:00 ; Blair Burrell M.D. 2018-12-12 2018-12-12 Appointment [facility] [id number] 15:30:00 15:30:00 ; Leonarda Restrepo PA-C 2018-12-12 2018-12-12 Appointment [facility] [id number] 12:05:00 12:05:00 ; SUZAN Barry 2018-12-10 2018-12-10 Appointment [facility] [id number] 10:40:00 10:40:00 ; [facility], ONC 2018-12-04 2018-12-04 Appointment [facility] [id number] 10:30:00 10:30:00 ; [facility] Lab, ONC 2018-11-27 2018-11-27 Appointment [facility] [id number] 11:00:00 11:00:00 ; ONC Chemo Infusion 616, ONC 2018-11-22 2018-11-22 Appointment Rose Mary [facility] [id number] 10:00:00 10:00:00 ; Miguelito Bazzi MD 2018-11-22 2018-11-22 [facility]ment [facility] [id number] 09:30:00 09:30:00 ; Luis Alfredo Delacruz MD 2018-11-20 2018-11-20 [facility] [id number] 10:40:00 10:40:00 ; [facility], ONC 2018-11-13 2018-11-13 Appointment [facility] [id number] 10:45:00 10:45:00 ; [facility] Lab, ONC 2018-11-06 2018-11-06 Appointment [facility] [id number] 14:20:00 14:20:00 ; ONC Chemo Infusion 616, ONC 2018-11-06 2018-11-06 Appointment [facility] [id number] 14:00:00 14:00:00 ; Blair Burrell M.D. 2018-10-24 2018-10-24 [facility] [id number] 11:00:00 11:00:00 [facility] [id number] \\T\\ Sports [id number] Medicine [id number] 2018-10-22 2018-10-22 [facility] [id number] 11:00:00 11:00:00 [facility] [id number] \\T\\ Sports [id number] Medicine [id number] 2018-10-12 2018-10-12 Outpatient [facility] [id number] 10:00:00 10:00:00 [facility] [id number] \\T\\ Sports [id number] Medicine [id number] 2018-09-27 2018-09-27 [facility] [id number] 11:00:00 11:00:00 [facility] [id number]- [id number] \\T\\ Sports [id number] Medicine [id number] 2018-09-20 2018-09-20 Outpatient [facility] [id number] [id number] 10:00:00 10:00:00 [facility] [id number]- [id number] \\T\\ Sports [id number] Medicine [id number] 2018-09-14 2018-09-14 Outpatient [facility] [id number] 11:00:00 11:00:00 [facility] [id number] \\T\\ Sports [id number] Medicine [id number] 2018-08-20 2018-08-20 Appointment JOCY Bazzi [facility] [id number] 15:30:00 15:30:00 ; Miguelito Bazzi MD 2018-06-20 2018-06-20 Leobardo [facility] [id number] 00:00:00 00:00:00 [facility] [id number] Kayode Montiel MD: [address] [place] [address], Ph. 2018-05-23 2018-05-23 Appointment JASON DelacruzSONDRA [facility] [id number] 08:30:00 08:30:00 ; Luis Alfredo Delacruz MD 2018-05-15 2018-05-15 Appointment Rose Mary [facility] [id number] 09:15:00 09:15:00 ; Miguelito Bazzi MD 2018-03-05 2018-03-05 Appointment [facility] [id number] 10:30:00 10:30:00 ; Samuel Ackerman 2018-02-14 2018-02-14 [facility] [id number] 09:45:00 09:45:00 ; Miguelito Bazzi MD 2017-12-28 2017-12-28 Appointment [facility] [id number] 15:10:00 15:10:00 ; KALEY BarryAY 2017-12-28 2017-12-28 [facility] [id number] 14:30:00 14:30:00 ; Miguelito Bazzi MD 2017-11-13 2017-11-13 Appointment JASON BazziSONDRA [facility] [id number] 11:45:00 11:45:00 ; Miguelito Bazzi MD 2017-11-13 2017-11-13 Appointment [facility] [id number] 09:15:00 09:15:00 ; REED srinivasan Nuclear 3 2017-11-08 2017-11-08 Appointment JASON DelacruzSONDRA [facility] [id number] 14:45:00 14:45:00 ; Luis Alfredo Delacruz MD 2017-11-08 2017-11-08 [facility] [id number] 10:15:00 10:15:00 ; Miguelito Bazzi MD 2017-10-18 2017-10-18 Appointment [facility] [id number] 11:30:00 11:30:00 ; Leonarda Restrepo PA-C 2017-09-04 2017-09-04 Appointment JOCY Bazzi [facility] [id number] 14:30:00 14:30:00 ; Miguelito Bazzi MD 2015-10-14 2015-10-14 Outpatient [facility] [id number] 00:00:00 00:00:00 2013-01-07 2013-01-07 Outpatient [facility] [id number] 00:00:00 00:00:00 Family History Family Member Diagnosis Comments Start Date Stop Date Grandfather Family history of diabetes mellitus Mother Family history of Parkinson Disease Father Family history of Stroke Syndrome Immunizations Ordered Immunization Filled Immunization Date Status Commen ts Refusal Name Name Reason Fluzone High-Dose 0.5 2019-11-13 Completed ML Intramuscular 09:38:00 Suspension Prefilled Syringe Fluzone High-Dose 0.5 2017-11-08 Completed ML Intramuscular 11:33:00 Suspension Prefilled Syringe Fluzone High-Dose 0.5 2016-11-11 Completed ML Intramuscular 00:00:00 Suspension Prefilled Syringe Influenza 2015-10-28 Completed 00:00:00 Pneumococcal 2014-12-31 Completed polysaccharide 00:00:00 vaccine, 23 valent Influenza 2014-12-28 Completed 00:00:00 Prevnar 13 2014-07-18 Completed Intramuscular 09:24:00 Suspension Influenza TIV (IM) 2013-10-24 Completed 00:00:00 Influenza 2013-10-24 Completed 00:00:00 Influenza QUAD (IM) 2012-10-25 Completed 00:00:00 Influenza 2011-11-22 Completed 00:00:00 Influenza 2011-01-10 Completed 00:00:00 Influenza 2009-12-09 Completed 00:00:00 Fluzone High-Dose 0.5 Unknown Completed ML Intramuscular Suspension Prefilled Syringe Payers Payer Name Policy Type Policy Number Effective Date Expiration D ate Plan of Treatment Planned Activity Planned Date Details Comments Future Scheduled Test [code = ] Future Scheduled Test [code = ] Future Scheduled Test [code = ] Future Scheduled Test [code = ] Future Scheduled Test [code = ] Future Scheduled Test [code = ] Future Scheduled Test [code = ] Future Scheduled Test [code = ] Future Scheduled Test [code = ] Future Scheduled Test [code = ] Future Scheduled Test [code = ] Future Scheduled Test [code = ] Future Scheduled Test [code = ] Future Scheduled Test [code = ] Future Scheduled Test [code = ] Future Scheduled Test [code = ] Social History Social Habit Start Date Stop Date Comments Exposure to SARS-CoV-2 (event) Alcohol intake 2019-06-19 00:00:00 2019-06-19 00:00:00 Tobacco use and exposure 2019-06-19 00:00:00 2019-06-19 00:00:00 Smoking Status Start Date Stop Date Never smoked tobacco (finding) Social History Observation Description Sex Male Vital Signs Vital Name Observation Time Observation Value Comments Systolic blood pressure 2019-06-19 13:00:00 132 mm[Hg] Diastolic blood pressure 2019-06-19 13:00:00 82 mm[Hg] Heart rate 2019-06-19 13:00:00 60 /min Body temperature 2019-06-19 08:55:00 36.78 Susana Body height 2019-06-19 08:55:00 190.5 cm Body weight 2019-06-19 08:55:00 120.203 kg BMI 2019-06-19 08:55:00 33.12 kg/m2 BP Diastolic 2018-06-20 00:00:00 79 mm[Hg] Height 2018-06-20 00:00:00 74 [in_i] BMI (Body Mass Index) 2018-06-20 00:00:00 37.7 kg/m2 BP Systolic 2018-06-20 00:00:00 126 mm[Hg] Body Weight 2018-06-20 00:00:00 294 [lb_av] Heart Rate Monitored 2019-12-25 10:23:00 61 /min Systolic Blood Pressure 2019-12-25 10:23:00 138 mm[Hg] Diastolic Blood Pressure 2019-12-25 10:23:00 106 mm[Hg] Respiratory Rate 2019-12-25 10:23:00 18 /min Systolic Blood Pressure 2019-12-25 08:09:00 135 mm[Hg] Diastolic Blood Pressure 2019-12-25 08:09:00 79 mm[Hg] Respiratory Rate 2019-12-25 08:09:00 18 /min Heart Rate Monitored 2019-12-25 08:09:00 58 /min Heart Rate Monitored 2019-12-25 07:31:00 57 /min Systolic Blood Pressure 2019-12-25 07:31:00 145 mm[Hg] Diastolic Blood Pressure 2019-12-25 07:31:00 79 mm[Hg] Respiratory Rate 2019-12-25 07:31:00 18 /min Temperature Oral 2019-12-25 06:32:00 36.6 Susana Peripheral Pulse Rate 2019-12-25 06:32:00 56 /min Systolic blood pressure 2019-11-13 09:37:00 118 mm[Hg] Loca tion: LUE; Position: Sittin g Diastolic blood pressure 2019-11-13 09:37:00 70 mm[Hg] Loc ation: LUE; Position: Sittin g Heart Rate 2019-11-13 09:37:00 72 /min Quality: Reg ular Respiratory rate 2019-11-13 09:37:00 15 /min Quality: No rmal Systolic blood pressure 2019-11-13 09:23:00 128 mm[Hg] Diastolic blood pressure 2019-11-13 09:23:00 70 mm[Hg] Weight 2019-11-13 09:23:00 283 [lb_av] Body mass index (BMI) 2019-11-13 09:23:00 34.45 kg/m2 [Ratio] Heart Rate 2019-11-13 09:23:00 74 /min Systolic blood pressure 2019-11-13 09:15:00 124 mm[Hg] Diastolic blood pressure 2019-11-13 09:15:00 70 mm[Hg] Heart Rate 2019-11-13 09:15:00 76 /min Body height 2019-11-13 09:15:00 76 [in_us] Respiratory rate 2019-11-13 09:15:00 16 /min Heart Rate Monitored 2019-10-30 18:09:00 51 /min Respiratory Rate 2019-10-30 18:09:00 16 /min Systolic Blood Pressure 2019-10-30 18:09:00 140 mm[Hg] Diastolic Blood Pressure 2019-10-30 18:09:00 79 mm[Hg] Heart Rate Monitored 2019-10-30 17:13:00 49 /min Respiratory Rate 2019-10-30 17:13:00 11 /min Systolic Blood Pressure 2019-10-30 17:13:00 144 mm[Hg] Diastolic Blood Pressure 2019-10-30 17:13:00 82 mm[Hg] Heart Rate Monitored 2019-10-30 16:15:00 51 /min Respiratory Rate 2019-10-30 16:15:00 14 /min Systolic Blood Pressure 2019-10-30 16:15:00 139 mm[Hg] Diastolic Blood Pressure 2019-10-30 16:15:00 77 mm[Hg] Systolic blood pressure 2019-08-26 11:33:00 110 mm[Hg] Loca tion: LUE; Position: Sittin g Diastolic blood pressure 2019-08-26 11:33:00 65 mm[Hg] Loc ation: LUE; Position: Sittin g Heart Rate 2019-08-26 11:33:00 75 /min Quality: Reg ular Respiratory rate 2019-08-26 11:33:00 15 /min Quality: No rmal Systolic blood pressure 2019-08-26 11:15:00 138 mm[Hg] Diastolic blood pressure 2019-08-26 11:15:00 78 mm[Hg] Heart Rate 2019-08-26 11:15:00 74 /min Weight 2019-08-26 11:15:00 283 [lb_av] Body mass index (BMI) 2019-08-26 11:15:00 34.45 kg/m2 [Ratio] Body temperature 2019-08-26 11:15:00 98.3 [degF] Systolic blood pressure 2019-08-02 09:51:00 136 mm[Hg] Diastolic blood pressure 2019-08-02 09:51:00 78 mm[Hg] Heart Rate 2019-08-02 09:51:00 78 /min Body temperature 2019-08-02 09:51:00 97.1 [degF] Body height 2019-08-02 09:51:00 76 [in_us] Hospital Discharge Instructions Patient Sxanmgqkr16/11/2020 10:02:09LACERATION, ScalpScalp Laceration: Sutures or StaplesA laceration is a cut through the skin. A scalp laceration may require stitches (sutures) or garrison. There are a lot of blood vessels in the scalp. Because of this, significant bleeding is common with scalp cuts.Home careThe following guidelines will help you care for your laceration at home: During the first2 days you may carefully rinse your hair in the shower to remove blood and glass or dirt particles. After 2 days you may shower and shampoo your hair normally. Have someone help you clean your woundevery day: In the shower, wash the area with soap and water. Use a wet cotton swab to loosen and remove any blood or crust that forms. After cleaning, keep the wound clean and dry. Talk with yourdoctor about applying antibiotic ointment to the wound. Apply a fresh bandage. Don't put your head underwater until the stitches or garrison have been removed. This means no swimming. Your doctor may prescribe an antibiotic cream or ointment to prevent infection. Do not stop taking this medication until you have finished the prescribed course or your doctor tells you to stop. Your doctor may prescribe medications for pain. If no pain medicines were prescribed, you can use [id number] pain medicines. Follow instructions for taking these medications. Talk with your doctor before using these medicines if you have chronic liver or kidney disease. Also talk with your doctor if you have ever had a stomach ulcer or GI bleeding.Follow-up careFollow up with your healthcare provider, or as advised. Check the wound daily for the signs of infection listed below. Stitches or garrison are usually removed from the scalp in about 7 to 14 days.Call 911Call 911 if any of these occur: Bleeding can't be controlled by direct pressureWhen to seek medical adviceCall your healthcare provider right awayif any of these occur: Signs of infection, including increasing pain in the wound, redness, swelling, or pus coming from the wound Fever of 100.4?F (38?C) or higher, or as directed by your healthc are provider Stitches or garrison come apart or fall out before your next appointment Wound edges re-open? [id number] [facility]. [address] [place] [address], [place] [id number]. All rights reserved. This information is not intended as a substitute for professional medical care. Always follow your healthcare professional's instructions.Follow Up Care12/25/2019 06:32:20With: Follow up with primary care providerAddress: UnknownWhen: 7-10 daysComments: Please have your garrison removed in 7to 10 days. Return for sudden worsening with severe headache with continuous vomiting, severe fevers, new weakness of your arms or legs or unable to walk, or any other concerns. NameDatesDetailsInstructions not documentedNameDatesDetailsInstructions not documentedEast [facility]10/30/2019 18:11:15PARAESTHESIASParaesthesiasParaesthesia is a burning or prickling sensation that is sometimes felt in the hands, arms, legs or feet. It can also occur in other parts of the body. It can also feel like tingling or numbness, skin crawling, or itching. The feeling is not comfortable, but it is not painful. (The "pins and needles" feeling that happens when a foot or hand "falls asleep" is a temporary paraesthesia.)Paraesthesias that last or come and go may be caused bymedical issues that need to be treated. These include stroke, a bulging disk pressing on a nerve, a trapped nerve, vitamin deficiencies, or even certain medicines.Tests are often done. These tests may include blood tests, X- ray, CT (computerized tomography) scan, or a muscle test (electromyography). De pending on the cause, treatment may include physical therapy.Home care Tell the healthcare provider about all medicines you take. This includes prescription and [id number]-[id number] medicines, vitamins,and herbs. Ask if any of the medicines may be causing your problems. Do not make any changes to prescription medicines without talking to your healthcare provider first. You may be prescribed medicines to help relieve the tingling feeling or for pain. Take all medicines as directed. A numb hand or foot may be more prone to injury. To help protect it: Always use oven mitts. Test water withan unaffected hand or foot. Use caution when trimming nails. File sharp areas. Wear shoes thatfit well to avoid pressure points, blisters, and ulcers. Inspect your hands and feet carefully (including the soles of your feet and between your toes) at least once a week. If you see red areas, sores, or other problems, tell your healthcare provider.Follow-up careFollow up with your doctor or as advised by our staff. You may need further testing or evaluation.When to seek medical adviceCall your healthcare provider right away if any of the following occur: Numbness or weakness of the face, one arm, or one leg Slurred speech, confusion, trouble speaking, walking, or seeing Severe headache, fainting spell, dizziness, or seizure Chest, arm, neck, or upper back pain Loss of bladderor bowel control Open wound with redness, swelling, or pus? [facility]. [address] [place] [address]. All rights reserved. This information is not intended as asubstitute for professional medical care. Always follow your healthcare professional's instructions.10/30/2019 18:11:15ALTERED LOCAltered Level of ConsciousnessLevel of consciousness (LOC) is a measureof a persons ability to interact with other people and to react to the surroundings. A person with an altered level of consciousness may not respond to touch or voices. He or she may look vacant or blank and may not make eye contact with others. He or she may be limp and may not move for a long time or show little interest in moving. He or she may also be confused.There are many causes of altered LOC. They include low blood sugar, infection, medicines, injuries, or other medical problems.Altered LOC is a medical emergency. The healthcare provider will do tests to help find the cause. These may include blood tests and imaging tests. The person is treated so breathing and heart rate are stable. An intravenous (IV) line may be put into a vein in the arm or hand to give medicines. Once the cause of altered LOC is found, the goal is to treat the cause.In almost all cases, the person will be admitted to the hospital for observation.Home careWhen your loved one is released from the hospital, you will be given guidelines for caring for him or her. In general: Follow the healthcare provider's instructions for giving any prescribed medicines to your child. Stay with your loved one or have another responsible adult look after him or her. Watch carefully for any return of symptoms or changes inbehavior. If the person has diabetes, make sure that any approved medicines are given on time andas prescribed.Follow-up careFollow up with the healthcare provider or our staff.When to seek medicaladviceCall the healthcare provider right away for any of the following: Symptoms of altered LOC return New symptoms appear? [facility]. [address] [place] [address]. All rights reserved. This information is not intended as a substitute for professional medical care. Always follow your healthcare professional's instructions.10/30/2019 18:11:15DEHYDRATION (6y-Adult)Dehydration (Adult)Dehydration occurs when your body loses too much fluid. This may be the result of prolonged vomiting or diarrhea, excessive sweating, or a high fever. It may also happen if youdont drink enough fluid when youre sick or out in the heat. Misuse of diuretics (water pills) can also be a cause.Symptoms include thirst and decreased urine output. You may also feel dizzy, weak, fatigued, or very drowsy. The diet described below is usually enough to treat dehydration. In some cases, you may need medicine.Home care Drink at least 12 8-ounce glasses of fluid every day to resolve the dehydration. Fluid may include water; orange juice; lemonade; apple, grape, or cranberry juice; clear fruit drinks; electrolyte replacement and sports drinks; and teas and coffee without caffeine. If you have been diagnosed with a kidney disease, ask your doctor how much and what types of fluids you should drink to prevent dehydration. If you have kidney disease, fluid can build up in the body. This can be dangerous to your health. If you have a fever, muscle aches, or a headache as a result of a cold or flu, you may take acetaminophen or ibuprofen, unless another medicine was prescribed. If you have chronic liver or kidney disease, or have ever had a stomach ulcer or gastrointestinal bleeding, talk with your health care provider before using these medicines. Don't take aspirin if you are younger than 18 and have a fever. Aspirin raises the chance for severe liver injury.Follow-up careFollow up with your health care provider, or as advised.When to seek medical adviceCall your health care provider right away if any of these occur: Continued vomiting Frequent diarrhea (more than5 times a day); blood (red or black color) or mucus in diarrhea Blood in vomit or stool Swollen abdomen or increasing abdominal pain Weakness, dizziness, or fainting Unusual drowsiness or confusion Reduced urine output or extreme thirst Fever of 100.4?F (34?C) or higher? [id number] [facility]. [address] [place] [address], [place] [address]. All rights reserved. This information is not intended as a substitute for professional medical care. Always follow your healthcare professional's instructions.Follow Up Care10/30/2019 13:46:33With: Quique BurrellAddress: [facility]2000 [place] [address]- Business (1)When: Within 1 Day(s)Comments: Call for follow up appointmentFollow up in 24 hoursReturn LAWANDA if WorseNo data available for this sectionPatient Instructions Donna Neal RN - 06/19/2019 8:15 AM EDTDetailed wound care and follow up instr uctional handouts were provided. documented in this encounter1. Malignant neoplasm of brain malignant brain tumor (primary): care instructions Discussion Note: None recorded.
== END 2019-12-25 06:00 | disposition left against medical advice (07) ==
LOC: ER 20:04
DX: S01.01XA Laceration without foreign body of scalp, initial encounter (principal); W19.XXXA Unspecified fall, initial encounter; M47.812 Spondylosis without myelopathy or radiculopathy, cervical region; M48.02 Spinal stenosis, cervical region; Z98.890 Other specified postprocedural states
CPT/HCPCS: 70450; 72125; 99281